=== PATIENT | male | born 1990 | race African-American/Black ===

== ENCOUNTER 2017-11-22 06:44 | Emergency (ER) | payer MEDICAID ==
[~2017-11-22] VITALS: Ht 180.3 cm; Wt 122.0 kg
[~2017-11-22 06:44] MED LIST: CIPRO500 MG OR; NAPROSYN500 MG OR; NAPROSYN500 MG PO; NO HOME MEDS; TESSALON PER100 MG PO; ZPAK PO
[2017-11-22 07:05] LABS: HEMATOCRIT 47.3 % (39.0-50.0); HEMOGLOBIN 15.4 g/dl (14.0-18.0); IMMATURE GRANULOCYTES 0.2 % (0.0-5.0); MEAN CELL VOLUME 82.1 fL CALC (80.0-100.0); MEAN CORPUSCULAR HGB 26.7 pG CALC (26.0-32.0); MEAN CORPUSCULAR HGB CONC 32.6 g/L CALC (32.0-36.0); NEUT# 4.59 thou/uL (1.82-7.42); RED BLOOD COUNT 5.76 mill/uL (4.70-6.10); RED CELL DISTRI WIDTH 13.6 % (11.5-15.5)
[2017-11-22 07:21] LABS: ALBUMIN 4.6 g/dL (3.2-5.0); AMYLASE 45 u/l (30-110); ANION GAP 16 (6-22 (CALC)); BILIRUBIN, TOTAL 0.7 mg/dL (0.0-1.4); BUN 9 mg/dL (9-20); BUN/CREATININE RATIO 13 (12-20 (CALC)); CARBON DIOXIDE 24 mmol/l (22-30); CHLORIDE 101 mmol/l (95-108); CREATININE 0.7 mg/dL (0.7-1.3); GFR > 60 ML/MIN (>=60 (CALC)); GFR FOR AFR.AMER. > 60 ML/MIN (>=60 (CALC)); POTASSIUM 4.4 mmol/l (3.5-5.1); SGPT/ALT 69 u/l (21-72); SODIUM 137 mmol/l (137-146); TOTAL PROTEIN 8.2 g/dL (6.3-8.2)
[2017-11-22 07:22] LABS: ALKALINE PHOSPHATASE 112 u/l (38-126); SGOT/AST 53 u/l (17-59)
[2017-11-22 07:33] LABS: MYOGLOBIN 21 ng/mL (0 - 121)
[2017-11-22] MEDS ORDERED: ZITHROMAX TRI-500 MG PO ×2 (08:03→08:14)
[2017-11-22] MEDS ORDERED: TORADOL PO ×2 (08:03→08:14)
[2017-11-22 08:11] VITALS: BP 148/81
== END 2017-11-22 08:20 | disposition home or self-care (01) ==
LOC: ED 06:44
PROVIDERS: Emergency Medicine
DX: J20.9 Acute bronchitis, unspecified (principal); F17.290 Nicotine dependence, other tobacco product, uncomplicated; R07.89 Other chest pain; M65.871 Other synovitis and tenosynovitis, right ankle and foot; R06.02 Shortness of breath; R05 Cough; I10 Essential (primary) hypertension

== ENCOUNTER 2019-06-12 | Emergency (ER) | payer MEDICAID ==
[~2019-06-12] MED LIST changes: +TORADOL PO; +ZITHROMAX TRI-500 MG PO
[2019-06-12 14:25] LABS: HEMOGLOBIN 14.4 g/dl (14.0-18.0); IMMATURE GRANULOCYTES 0.2 % (0.0-5.0); MEAN CELL VOLUME 83.5 fL CALC (80.0-100.0); MEAN CORPUSCULAR HGB 26.7 pG CALC (26.0-32.0); NEUT# 4.38 thou/uL (1.82-7.42); RED BLOOD COUNT 5.39 mill/uL (4.70-6.10); RED CELL DISTRI WIDTH 14.3 % (11.5-15.5)
[2019-06-12 14:44] LABS: ACT PARTIAL THROMBO TIME 26.6 SECONDS (20.0-32.5); ALBUMIN 4.5 g/dL (3.2-5.0); ALKALINE PHOSPHATASE 93 u/l (38-126); ANION GAP 15 (6-22 (CALC)); BILIRUBIN, TOTAL 0.5 mg/dL (0.0-1.4); BUN 9 mg/dL (9-20); BUN/CREATININE RATIO 14 (12-20 (CALC)); CARBON DIOXIDE 22 mmol/l (22-30); CHLORIDE 103 mmol/l (95-108); CREATININE 0.6 mg/dL (0.7-1.3); GFR > 60 ML/MIN (>=60 (CALC)); GFR FOR AFR.AMER. > 60 ML/MIN (>=60 (CALC)); INTERNATIONAL NORMALIZED RATIO 1.1 RATIO (0.7-1.3); POTASSIUM 4.4 mmol/l (3.5-5.1); PROTHROMBIN TIME 11.4 SECONDS (9.0-12.5); SGOT/AST 62 u/l (17-59); SODIUM 135 mmol/l (137-146); TOTAL PROTEIN 8.2 g/dL (6.3-8.2)
== END 2019-06-12 15:32 | disposition left against medical advice (07) ==
DX: I20.9 Angina pectoris, unspecified (principal); I10 Essential (primary) hypertension; E11.65 Type 2 diabetes mellitus with hyperglycemia; E66.9 Obesity, unspecified; R06.02 Shortness of breath

== ENCOUNTER 2019-06-14 | Emergency (ER) | payer MEDICAID ==
[2019-06-14 06:50] LABS: HEMATOCRIT 41.1 % (39.0-50.0); HEMOGLOBIN 13.6 g/dl (14.0-18.0); IMMATURE GRANULOCYTES 0.2 % (0.0-5.0); MEAN CELL VOLUME 83.4 fL CALC (80.0-100.0); MEAN CORPUSCULAR HGB 27.6 pG CALC (26.0-32.0); MEAN CORPUSCULAR HGB CONC 33.1 g/L CALC (32.0-36.0); NEUT# 4.79 thou/uL (1.82-7.42); RED BLOOD COUNT 4.93 mill/uL (4.70-6.10); RED CELL DISTRI WIDTH 14.6 % (11.5-15.5)
[2019-06-14 07:31] LABS: URINE BILIRUBIN - DIPSTICK NEGATIVE (NEGATIVE); URINE BLOOD DIPSTICK NEGATIVE (NEGATIVE); URINE COLOR YELLOW; URINE GLUCOSE - DIPSTICK >=1000 mg/dL (NEGATIVE); URINE KETONE NEGATIVE (NEGATIVE); URINE LEUK ESTERASE NEGATIVE (NEGATIVE); URINE NITRITE - DIPSTICK NEGATIVE (Negative); URINE PROTEIN - DIPSTICK NEGATIVE (NEG-TRACE); URINE UROBILINOGEN - DIPSTICK 0.2 E.U./dL (0.2)
[2019-06-14 07:33] LABS: BARBITURATES NEGATIVE (NEGATIVE); COCAINE NEGATIVE (NEGATIVE); METHADONE NEGATIVE (NEGATIVE); OXCYCODONE NEGATIVE (NEGATIVE); TETRAHYDROCANNABIONOL NEGATIVE (NEGATIVE); TRICYLIC ANTIDEPRESSANTS NEGATIVE (NEGATIVE)
[2019-06-14 07:34] LABS: ALBUMIN 4.2 g/dL (3.2-5.0); ALKALINE PHOSPHATASE 105 u/l (38-126); AMYLASE 46 u/l (30-110); ANION GAP 17 (6-22 (CALC)); BILIRUBIN, TOTAL 0.4 mg/dL (0.0-1.4); BUN 10 mg/dL (9-20); BUN/CREATININE RATIO 19 (12-20 (CALC)); CARBON DIOXIDE 19 mmol/l (22-30); CHLORIDE 102 mmol/l (95-108); CREATININE 0.5 mg/dL (0.7-1.3); GFR > 60 ML/MIN (>=60 (CALC)); GFR FOR AFR.AMER. > 60 ML/MIN (>=60 (CALC)); LIPASE 240 u/l (23-300); POTASSIUM 4.6 mmol/l (3.5-5.1); SGOT/AST 32 u/l (17-59); SODIUM 134 mmol/l (137-146); TOTAL PROTEIN 7.5 g/dL (6.3-8.2)
[2019-06-14 07:38] LABS: URINE RBC 0-2 RBC/hpf (0-5)
[2019-06-14 07:39] LABS: URINE BACTERIA FEW hpf; URINE SQUAMOUS EPITHELIAL CELL FEW EPI/hpf (0-FEW)
[2019-06-14 07:45] LABS: MYOGLOBIN 13 ng/mL (0 - 121)
[2019-06-14 07:52] LABS: ACT PARTIAL THROMBO TIME 26.3 SECONDS (20.0-32.5); D-DIMER 0.26 mg/L (0.19-0.60); INTERNATIONAL NORMALIZED RATIO 1.1 RATIO (0.7-1.3); PROTHROMBIN TIME 11.1 SECONDS (9.0-12.5)
== END 2019-06-14 08:28 | disposition left against medical advice (07) ==
PROVIDERS: Family Medicine
DX: R07.9 Chest pain, unspecified (principal); R73.9 Hyperglycemia, unspecified; I10 Essential (primary) hypertension; Z91.19 Patient's noncompliance with other medical treatment and regimen

== ENCOUNTER 2020-08-02 22:45 | Observation (INO) | payer OTHER ==
[~2020-08-02] VITALS: Ht 180.3 cm; Wt 120.0 kg
--- NOTE | 2020-08-02 23:03 | NUR ---
PT IN ROOM WITH THE HIGHWAY MAINTENANCE WORKER FROM THE BEDSIDE
[2020-08-02] MEDS ORDERED: NORVASC10 M1 PO (23:11)
[2020-08-02] MEDS ORDERED: DOXEPIN HCL75 MG PO (23:13)
[2020-08-02] MEDS ORDERED: METFORMIN HCL1000 MG PO (23:14)
[2020-08-02] MEDS ORDERED: HYDROXYZ HCL50 MG PO (23:14)
--- NOTE | 2020-08-02 23:20 | NUR ---
PT CALLED A STROKE ALERT AND WAS TAKEN BY STRETCHER TO T
[2020-08-02 23:23] LABS: HEMATOCRIT 41.3 % (39.0-50.0); IMMATURE GRANULOCYTES 0.3 % (0.0-5.0); MEAN CELL VOLUME 80.8 fL CALC (80.0-100.0); MEAN CORPUSCULAR HGB 25.4 pG CALC (26.0-32.0); MEAN CORPUSCULAR HGB CONC 31.5 g/dL CAL (32.0-36.0); NEUT# 5.31 thou/uL (1.82-7.42); RED BLOOD COUNT 5.11 mill/uL (4.70-6.10); RED CELL DISTRI WIDTH 13.5 % (11.5-15.5)
[2020-08-02 23:29] LABS: INTERNATIONAL NORMALIZED RATIO 1.2 RATIO (0.7-1.3); PROTHROMBIN TIME 11.8 SECONDS (9.0-12.5)
[2020-08-02 23:31] LABS: ALBUMIN 4.6 g/dL (3.2-5.0); ALKALINE PHOSPHATASE 102 u/l (38-126); BILIRUBIN, TOTAL 0.5 mg/dL (0.0-1.4); BUN 10 mg/dL (9-20); BUN/CREATININE RATIO 13 (12-20 (CALC)); CARBON DIOXIDE 27 mmol/l (22-30); CREATININE 0.7 mg/dL (0.7-1.3); GFR > 60 ML/MIN (>=60 (CALC)); GFR FOR AFR.AMER. > 60 ML/MIN (>=60 (CALC)); SGOT/AST 24 u/l (17-59); SODIUM 133 mmol/l (137-146); TOTAL PROTEIN 7.7 g/dL (6.3-8.2)
[2020-08-02 23:33] LABS: ANION GAP 24 (6-22 (CALC)); CHLORIDE 86 mmol/l (95-108)
[2020-08-02 23:39] LABS: MYOGLOBIN 16 ng/mL (0 - 121)
[2020-08-02 23:46] LABS: URINE BILIRUBIN - DIPSTICK NEGATIVE (NEGATIVE); URINE BLOOD DIPSTICK NEGATIVE (NEGATIVE); URINE COLOR YELLOW; URINE GLUCOSE - DIPSTICK 250 mg/dL (NEGATIVE); URINE KETONE NEGATIVE (NEGATIVE); URINE PH 5.5 (4.5-8.0); URINE PROTEIN - DIPSTICK NEGATIVE (NEG-TRACE); URINE SPECIFIC GRAVITY <=1.005; URINE UROBILINOGEN - DIPSTICK 0.2 E.U./dL (0.2)
[2020-08-03] LABS: URINE LEUK ESTERASE SMALL (NEGATIVE); URINE NITRITE - DIPSTICK NEGATIVE (Negative)
[2020-08-03 00:03] LABS: URINE BACTERIA MODERATE hpf; URINE EPITHELIAL CELLS FEW EPI/hpf (0-FEW)
--- NOTE | 2020-08-03 00:41 | NUR ---
PT APPEARS TO BE SLEEPING IN THE ROOM - NO COMPLAINTS
--- NOTE | 2020-08-03 01:39 | NUR ---
PT IS BEING ADMITTED FOR [facility]NCOPE. REPORT CALLED TO [facility].
[2020-08-03 02:05] VITALS: BP 139/92
--- NOTE | 2020-08-03 02:41 | NUR ---
PT RECEIVED FROM ED TO ROOM 278. ARRIVES VIA STRETCHER ACCOMPANIED BY SENTHIL ALBA. PT TRANSFERED TO BED FROM STRETCHER. PT DENIES PAIN AT THIS TIME. ORIENTED TO UNIT, ROOM, CALL [facility], LIGHTS, TV. ICE WATER PROVIDED. CALL [facility] WITHIN REACH. AGREES TO CALL PRN. PT IS FROM [facility]. SHACKLED TO THE BED WITH GOOD LIMB CIRCULATION. ONE GUARD BEDSIDE.
[2020-08-03 04:00] VITALS: BP 144/90
--- NOTE | 2020-08-03 04:06 | NUR ---
PT RESTING IN BED, NO SIGNS OF DISTRESS NOTED, RESP EVEN AND UNLABORED. PT VOICES NO NEEDS OR COMPLAINTS AT THIS TIME. CALL LIGHT IN REACH, CONTINUE TO MONITOR.
[2020-08-03 07:25] VITALS: BP 144/89
--- NOTE | 2020-08-03 08:30 | NUR ---
ASSESSMENT IS COMPLETED; IV SITE IS FREE FROM REDNESS OR EDEMA.HR IS REG,PULSES ARE STRONG X4, ABD IS SOFT WITH ACTIV EBS. BREATH SOUNDS ARE CLEAR,BILATERALLY, NO C/O SOB. TELE MONITOR IN PLACE, PT HAS 1 GUARD AT BEDSIDE.
--- NOTE | 2020-08-03 08:40 | NUR ---
PT C/O "FEELING DIZZY AND HEADACHE" TO THE STEAMBOAT INSPECTOR
--- NOTE | 2020-08-03 09:00 | NUR ---
WHILE GIVING PT MEDICATION IV FLUIDS AND ABT.PT STATED"I TRIED TELLING THE NURSE THAT , THE NUMBNESS ON MY R ARM IS NOTHNG NEW IT HAS BEEN DOING THAT FOR YEARS".
[2020-08-03 10:28] VITALS: BP 145/86
--- NOTE | 2020-08-03 12:15 | NUR ---
PTIS RELAXING IN BED WITH NO DISTRESS NOTED. IV SITE IS FREE FROMR EDNESS OR EDEMA. GUARD PRESENT IN THE ROOM.
[2020-08-03] MEDS ORDERED: LEXAPRO10 MG PO (13:57)
[2020-08-03] MEDS ORDERED: LOPRESSOR25 MG PO (13:57)
[2020-08-03] MEDS ORDERED: KEFLEX500 MG PO (14:08)
[2020-08-03 14:29] VITALS: BP 145/86
--- NOTE | 2020-08-03 15:33 | NUR ---
IV SITE DISCONTINUED CATHETER INTACT.NO REDNESS OR EDEMA.DISCHARGE INSTRUCTIONS VERBALIZED TO NALIA FROM [facility]. AND PAPERS GIVEN TO THE OFFICER. PT AMBULATED OFF THE UNIT WITH SHACKLES IN PLACE. TELE TAKEN OFF PT.CONTINUE TO [place] AND MONITOR.
--- NOTE | 2020-08-03 15:36 | NUR ---
Discharge instructions given. Patient verbalizes understanding of same. Discharged in stable condition via Ambulatory to *Other with *Other. All belongings sent with pt.[facility] WITH OFFICERS
== END 2020-08-03 15:31 | DRG 312 ==
LOC: ED 22:45 → ED-I 08-03 01:08 → ED 08-03 01:35 → MS2 08-03 01:36
PROVIDERS: Emergency Medicine; ADMIT Internal Medicine; ATTEND Internal Medicine
DX: R55 Syncope and collapse (principal); N39.0 Urinary tract infection, site not specified; R07.9 Chest pain, unspecified; R00.2 Palpitations; R20.0 Anesthesia of skin; E11.65 Type 2 diabetes mellitus with hyperglycemia; I10 Essential (primary) hypertension; F99 Mental disorder, not otherwise specified; F17.200 Nicotine dependence, unspecified, uncomplicated; Z79.84 Long term (current) use of oral hypoglycemic drugs; Z20.822 Contact with and (suspected) exposure to COVID-19
CPT/HCPCS: G0378